=== PATIENT | male | born 1945 | race Caucasian/White ===

== ENCOUNTER → 2017-08-19 | Outpatient (CLI) | payer OTHER ==
[~2017-08-19] MED LIST: ASPI81CH PO; Adult Low Dose81 MG PO; CEPH500 PO; CHLO25B PO; CIPR500 PO; CLARITIN10 MG PO; Chlorthalidone25 MG PO; Diovan320 MG PO; GLIM2 PO; GLIM4 PO; LIRA0.6P SC; METF500; METF500 PO; NAPR220 PO; Omeprazole20 M1 PO; Simvastatin40 MG PO; Vibramycin100 MG PO
== END | disposition home or self-care (01) ==
LOC: PLD 07:28 → LAB SHORT 07:28
DX: C44.219 Basal cell carcinoma of skin of left ear and external auricular canal (principal)
CPT/HCPCS: 88305

== ENCOUNTER 2017-09-24 07:31 | Day surgery (SDC) | payer OTHER ==
[~2017-09-24] VITALS: Ht 175.3 cm; Wt 102.5 kg
[~2017-09-24 07:31] MED LIST changes: -CEPH500 PO; -CIPR500 PO; -GLIM2 PO; -Omeprazole20 M1 PO
== END 2017-09-24 22:55 | disposition home or self-care (01) ==
LOC: ORSCMMR 07:31
PROVIDERS: Surgery
PROC: 0WUF0JZ Supplement Abdominal Wall with Synthetic Substitute, Open Approach (ICD-10-PCS; principal; 2017-09-24 09:00)
DX: K42.9 Umbilical hernia without obstruction or gangrene (principal); I10 Essential (primary) hypertension; G47.33 Obstructive sleep apnea (adult) (pediatric); E11.9 Type 2 diabetes mellitus without complications; E66.9 Obesity, unspecified; Z68.33 Body mass index [BMI] 33.0-33.9, adult; Z79.899 Other long term (current) drug therapy; Z79.82 Long term (current) use of aspirin
CPT/HCPCS: 82947; C1781; J0690; J1100; J1885; J2250; J2370; J2405; J3010; J7120

== ENCOUNTER → 2017-10-22 | Outpatient (CLI) | payer OTHER ==
[~2017-10-22] MED LIST changes: +CEPH500 PO; +CIPR500 PO; +GLIM2 PO; +Omeprazole20 M1 PO
== END ==
LOC: LAB 12:30
DX: R10.2 Pelvic and perineal pain (principal)
CPT/HCPCS: 87077; 87086; 87186

== ENCOUNTER 2017-10-25 16:20 | Observation (INO) | payer OTHER ==
[~2017-10-25] VITALS: Ht 177.8 cm; Wt 97.7 kg
[~2017-10-25 16:20] MED LIST changes: -CEPH500 PO; -CIPR500 PO; -GLIM2 PO; -Omeprazole20 M1 PO
[2017-10-25] MEDS ORDERED: Omeprazole20 M1 PO (17:12)
[2017-10-25] MEDS ORDERED: CIPR500 PO (17:13)
[2017-10-25] MEDS ORDERED: GLIM2 PO (17:14)
[2017-10-25 17:40] LABS: BASOPHILS ABSOLUTE AUTO 0.03 K/mm3 (0.00-0.23); BASOPHILS PERCENT AUTO 1 % (0-2); EOSINOPHILS ABSOLUTE AUTO 0.05 K/mm3 (0.00-0.68); EOSINOPHILS PERCENT AUTO 1 % (0-6); Hematocrit 40.6 % (37.0-53.0); IMMATURE GRAN ABSOLUTE AUTO 0.02 K/mm3 (0.00-0.10); IMMATURE GRAN PERCENT AUTO 1 % (0-1); LYMPHOCYTES ABSOLUTE AUTO 1.06 K/mm3 (0.84-5.20); LYMPHOCYTES PERCENT AUTO 24 % (21-46); MONOCYTES ABSOLUTE AUTO 0.95 K/mm3 (0.16-1.47); MONOCYTES PERCENT AUTO 22 % (4-13); Mean Corpuscular HGB 32.3 pg (26.0-34.0); Mean Corpuscular HGB Conc 34.5 g/dL (31.5-36.5); Mean Corpuscular Volume 94 fL (80-100); Mean Platelet Volume 10.2 fL (9.1-12.4); NEUTROPHILS ABSOLUTE AUTO 2.28 K/mm3 (1.96-9.15); NEUTROPHILS PERCENT AUTO 52 % (41-73); Platelet Count 210 K/mm3 (150-400); RDW Coefficient Variation 14.6 % (11.7-14.2); RDW Standard Deviation 50.4 fL (35.1-46.3); Red Blood Cell Count 4.34 M/mm3 (4.30-5.90); White Blood Cell Count 4.39 K/mm3 (4.00-11.30)
[2017-10-25 17:53] LABS: Alanine Aminotransfer (ALT/SGP 70 U/L (12-78); Albumin, Blood 3.1 g/dL (3.4-5.0); Albumin/Globulin Ratio 0.7 (0.8-1.8); Alk Phos 97 U/L (50-136); Anion Gap 11 mmol/L (6-16); Aspartate Aminotrans (AST/SGOT 44 U/L (12-37); Bilirubin, Total 0.5 mg/dL (0.1-1.0); Blood Urea Nitrogen 57 mg/dL (8-24); Bun/Creatinine Ratio 23.7 (12.0-20.0); CO2, Blood 24 mmol/L (21-32); Calcium, Blood 8.6 mg/dL (8.5-10.1); Chloride, Blood 102 mmol/L (98-108); Creatinine, Blood 2.41 mg/dL (0.60-1.20); Globulin, Blood 4.5 g/dL (2.2-4.0); Glomerular Filtration Rate 28 (60-); Glucose, Blood 219 mg/dL (70-99); Sodium, Blood 137 mmol/L (136-145); Total Protein, Blood 7.6 g/dL (6.4-8.2); Troponin I <0.015 ng/mL (0.000-0.040)
[2017-10-25 18:42] LABS: Source, Urine Voided
[2017-10-25 18:58] LABS: Appearance, Urine Cloudy (Clear); Bilirubin, Urine 1+ (Neg); Blood, Urine 1+ (Neg); Color, Urine Yellow (P-Yellow); Glucose Qualitative, Urine Neg (Neg); Ketones, Urine Neg (Neg); Leukocyte Esterase, Urine 2+ (Neg); Nitrite, Urine Neg (Neg); Protein, Urine 2+ (Neg); Specific Gravity, Urine 1.025 (1.003-1.022); Urobilinogen, Urine NORM (Normal)
[2017-10-25 18:59] LABS: White Blood Cells, Urine 25-50 /hpf (0-5)
[2017-10-25 19:00] LABS: Amorphous Light (0-Heavy); Bacteria Many /hpf; Squamous Epithelial Cells Few /hpf (Few)
[2017-10-26 05:11] LABS: BASOPHILS ABSOLUTE AUTO 0.02 K/mm3 (0.00-0.23); BASOPHILS PERCENT AUTO 0 % (0-2); EOSINOPHILS ABSOLUTE AUTO 0.07 K/mm3 (0.00-0.68); EOSINOPHILS PERCENT AUTO 2 % (0-6); Hematocrit 36.8 % (37.0-53.0); Hemoglobin 12.7 g/dL (13.5-17.5); IMMATURE GRAN ABSOLUTE AUTO 0.02 K/mm3 (0.00-0.10); IMMATURE GRAN PERCENT AUTO 0 % (0-1); LYMPHOCYTES ABSOLUTE AUTO 2.06 K/mm3 (0.84-5.20); LYMPHOCYTES PERCENT AUTO 44 % (21-46); MONOCYTES ABSOLUTE AUTO 0.65 K/mm3 (0.16-1.47); MONOCYTES PERCENT AUTO 14 % (4-13); Mean Corpuscular HGB 31.4 pg (26.0-34.0); Mean Corpuscular HGB Conc 34.5 g/dL (31.5-36.5); Mean Platelet Volume 9.6 fL (9.1-12.4); NEUTROPHILS ABSOLUTE AUTO 1.83 K/mm3 (1.96-9.15); NEUTROPHILS PERCENT AUTO 39 % (41-73); Platelet Count 187 K/mm3 (150-400); RDW Coefficient Variation 14.6 % (11.7-14.2); RDW Standard Deviation 48.4 fL (35.1-46.3); Red Blood Cell Count 4.04 M/mm3 (4.30-5.90); White Blood Cell Count 4.65 K/mm3 (4.00-11.30)
[2017-10-26 05:15] LABS: Mean Corpuscular Volume 91 fL (80-100)
[2017-10-26 05:40] LABS: Albumin, Blood 2.6 g/dL (3.4-5.0); Albumin/Globulin Ratio 0.6 (0.8-1.8); Bilirubin, Total 0.3 mg/dL (0.1-1.0); Calcium, Blood 8.2 mg/dL (8.5-10.1); Creatinine, Blood 1.68 mg/dL (0.60-1.20); Globulin, Blood 4.1 g/dL (2.2-4.0); Potassium, Blood 4.1 mmol/L (3.5-5.5); Total Protein, Blood 6.7 g/dL (6.4-8.2)
[2017-10-26] MEDS ORDERED: CEPH500 PO (11:24)
== END 2017-10-26 14:24 | disposition home or self-care (01) ==
LOC: ER 16:20 → MEDS 16:21 → ENPENDDIS 10-26 10:59 → MEDS 10-26 14:24
PROVIDERS: Emergency Medicine; Internal Medicine
DX: N17.9 Acute kidney failure, unspecified (principal); N39.0 Urinary tract infection, site not specified; B96.20 Unspecified Escherichia coli [E. coli] as the cause of diseases classified elsewhere; E11.9 Type 2 diabetes mellitus without complications; I10 Essential (primary) hypertension; K59.00 Constipation, unspecified; K21.9 Gastro-esophageal reflux disease without esophagitis; Z79.82 Long term (current) use of aspirin; Z87.891 Personal history of nicotine dependence; Z79.899 Other long term (current) drug therapy
CPT/HCPCS: 36415; 71046; 76770; 80053; 81001; 82947; 83880; 84484; 85025; 87086; 93005; 93010; 96360; 96361; 96372; 96374; 99285; G0378; J0696; J1650; J7030

== ENCOUNTER 2019-01-27 16:10 | Emergency (ER) | payer OTHER ==
[~2019-01-27] VITALS: Ht 175.3 cm; Wt 104.3 kg
[~2019-01-27 16:10] MED LIST changes: +CEPH500 PO; +CIPR500 PO; +GLIM2 PO; +Omeprazole20 M1 PO
[2019-01-27 20:18] LABS: Alanine Aminotransfer (ALT/SGP 61 U/L (12-78); Albumin, Blood 3.7 g/dL (3.4-5.0); Albumin/Globulin Ratio 0.8 (0.8-1.8); Alk Phos 57 U/L (50-136); Anion Gap 4 mmol/L (6-16); Aspartate Aminotrans (AST/SGOT 23 U/L (12-37); Bilirubin, Total 0.6 mg/dL (0.1-1.0); Blood Urea Nitrogen 19 mg/dL (8-24); CO2, Blood 32 mmol/L (21-32); Calcium, Blood 9.1 mg/dL (8.5-10.1); Chloride, Blood 106 mmol/L (98-108); Creatinine, Blood 1.19 mg/dL (0.60-1.20); Globulin, Blood 4.5 g/dL (2.2-4.0); Glomerular Filtration Rate >60 (60-); Glucose, Blood 108 mg/dL (70-99); Potassium, Blood 3.7 mmol/L (3.5-5.5); Sodium, Blood 142 mmol/L (136-145); Total Protein, Blood 8.2 g/dL (6.4-8.2); Troponin I <0.015 ng/mL (0.000-0.040)
== END 2019-01-27 20:39 | disposition home or self-care (01) ==
LOC: ER 16:10
PROVIDERS: Physician Assistant
DX: R07.89 Other chest pain (principal); Z79.899 Other long term (current) drug therapy; Z79.82 Long term (current) use of aspirin; Z87.891 Personal history of nicotine dependence; I48.4 Atypical atrial flutter
CPT/HCPCS: 36415; 71046; 80048; 80053; 84484; 93005; 93010; 99283-25

== ENCOUNTER 2020-11-14 09:44 | Day surgery (SDC) | payer OTHER ==
[~2020-11-14] VITALS: Ht 177.8 cm; Wt 100.7 kg
[~2020-11-14 09:44] MED LIST changes: +ATEN25 PO; +ELIQUIS5 MG PO; +LOSA50 PO; +METF500C PO; +PRAV20 PO; +Percocet 5-3251 EACH; +TORS10 PO
--- NOTE | 2020-11-14 10:20 | NUR ---
11/14/20 1020 FRANCHESCA MANCIA ONE ATTEMPT IN RFA BY SONIA SECOND SUCCESSFUL BY RN IN RAC PT TOW
== END 2020-11-14 11:50 | disposition home or self-care (01) ==
LOC: ORSCSDS 09:44
PROVIDERS: Internal Medicine Gastroenterology
PROC: 0DBM8ZX Excision of Descending Colon, Via Natural or Artificial Opening Endoscopic, Diagnostic (ICD-10-PCS; principal; 2020-11-14 11:00)
PROC: 0DBK8ZX Excision of Ascending Colon, Via Natural or Artificial Opening Endoscopic, Diagnostic (ICD-10-PCS; principal; 2020-11-14 11:00)
DX: Z12.11 Encounter for screening for malignant neoplasm of colon (principal); D12.2 Benign neoplasm of ascending colon; D12.4 Benign neoplasm of descending colon; K64.8 Other hemorrhoids; K57.30 Diverticulosis of large intestine without perforation or abscess without bleeding; Z86.010 Personal history of colon polyps; E11.9 Type 2 diabetes mellitus without complications; G47.33 Obstructive sleep apnea (adult) (pediatric); I10 Essential (primary) hypertension; Z87.891 Personal history of nicotine dependence; Z79.01 Long term (current) use of anticoagulants; Z79.899 Other long term (current) drug therapy
CPT/HCPCS: 82947; 88305; J2704; J7120; J7799

== ENCOUNTER → 2021-08-29 | Outpatient (CLI) | payer OTHER ==
[2021-08-29 15:31] LABS: Source, Urine Clean Catch
[2021-08-29 15:58] LABS: Bilirubin, Urine Neg (Neg); Blood, Urine 5+ (Neg); Glucose Qualitative, Urine Neg (Neg); Ketones, Urine Neg (Neg); Leukocyte Esterase, Urine 1+ (Neg); Nitrite, Urine Neg (Neg); Protein, Urine 2+ (Neg); Urobilinogen, Urine NORM (Normal)
[2021-08-29 16:03] LABS: Appearance, Urine Hazy (Clear); Color, Urine Pale Yellow (P-Yellow)
[2021-08-29 16:05] LABS: Amorphous Light (0-Heavy); Bacteria Few /hpf; Mucus Light (0-Heavy); Red Blood Cells, Urine 50-100 /hpf (0-2); Squamous Epithelial Cells Rare /hpf (Few)
[2021-08-29 16:07] LABS: Granular Casts 0-2 /lpf (0); Hyaline Casts 0-2 /lpf (0-2)
== END ==
LOC: LAB SHORT 15:28
PROVIDERS: Registered Nurse Oncology
DX: C22.0 Liver cell carcinoma (principal); N39.0 Urinary tract infection, site not specified
CPT/HCPCS: 81001

== ENCOUNTER 2021-11-25 18:34 | Emergency (ER) | payer OTHER ==
[~2021-11-25] VITALS: Ht 175.3 cm; Wt 86.2 kg
[2021-11-25] MEDS ORDERED: AMOCLA875 PO (20:00)
[2021-11-26] MEDS ORDERED: Percocet 7.5-31 EACH PO (12:07)
== END 2021-11-25 20:16 | disposition home or self-care (01) ==
LOC: ER 18:34
DX: K08.89 Other specified disorders of teeth and supporting structures (principal); Z79.899 Other long term (current) drug therapy; Z87.891 Personal history of nicotine dependence
CPT/HCPCS: A9270

== ENCOUNTER 2021-11-26 10:30 | Emergency (ER) | payer OTHER ==
[~2021-11-26] VITALS: Ht 175.3 cm; Wt 86.2 kg
[~2021-11-26 10:30] MED LIST changes: +AMOCLA875 PO
[2021-11-26 11:05] LABS: BASOPHILS ABSOLUTE AUTO 0.02 K/mm3 (0.00-0.23); BASOPHILS PERCENT AUTO 0 % (0-2); EOSINOPHILS ABSOLUTE AUTO 0.01 K/mm3 (0.00-0.68); EOSINOPHILS PERCENT AUTO 0 % (0-6); Hematocrit 47.4 % (37.0-53.0); Hemoglobin 16.2 g/dL (13.5-17.5); IMMATURE GRAN ABSOLUTE AUTO 0.02 K/mm3 (0.00-0.10); IMMATURE GRAN PERCENT AUTO 0 % (0-1); LYMPHOCYTES ABSOLUTE AUTO 0.93 K/mm3 (0.84-5.20); LYMPHOCYTES PERCENT AUTO 17 % (21-46); MONOCYTES ABSOLUTE AUTO 0.58 K/mm3 (0.16-1.47); MONOCYTES PERCENT AUTO 11 % (4-13); Mean Corpuscular HGB 32.1 pg (26.0-34.0); Mean Corpuscular HGB Conc 34.2 g/dL (31.5-36.5); Mean Corpuscular Volume 94 fL (80-100); Mean Platelet Volume 10.2 fL (9.1-12.4); NEUTROPHILS ABSOLUTE AUTO 3.98 K/mm3 (1.96-9.15); NEUTROPHILS PERCENT AUTO 72 % (41-73); Platelet Count 207 K/mm3 (150-400); RDW Coefficient Variation 14.7 % (11.7-14.2); RDW Standard Deviation 50.4 fL (35.1-46.3); Red Blood Cell Count 5.05 M/mm3 (4.30-5.90); White Blood Cell Count 5.54 K/mm3 (4.00-11.30)
[2021-11-26 11:25] LABS: Alanine Aminotransfer (ALT/SGP 38 U/L (12-78); Albumin, Blood 3.4 g/dL (3.4-5.0); Albumin/Globulin Ratio 0.6 (0.8-1.8); Alk Phos 74 U/L (50-136); Anion Gap 6 mmol/L (6-16); Aspartate Aminotrans (AST/SGOT 20 U/L (12-37); Blood Urea Nitrogen 23 mg/dL (8-24); Bun/Creatinine Ratio 21.9 (12.0-20.0); CO2, Blood 30 mmol/L (21-32); Calcium, Blood 9.6 mg/dL (8.5-10.1); Chloride, Blood 102 mmol/L (98-108); Creatinine, Blood 1.05 mg/dL (0.60-1.20); Globulin, Blood 5.3 g/dL (2.2-4.0); Glomerular Filtration Rate >60 (60-); Glucose, Blood 137 mg/dL (70-99); Potassium, Blood 4.6 mmol/L (3.5-5.5); Sodium, Blood 138 mmol/L (136-145); Total Protein, Blood 8.7 g/dL (6.4-8.2)
[2021-11-26] MEDS ORDERED: Percocet 7.5-31 EACH PO (12:07)
== END 2021-11-26 12:28 | disposition home or self-care (01) ==
LOC: ER 10:30
PROVIDERS: Physician Assistant
DX: K02.9 Dental caries, unspecified (principal); Z87.891 Personal history of nicotine dependence; Z79.899 Other long term (current) drug therapy
CPT/HCPCS: 80053; 85025; 85651; A9270; J3010

== ENCOUNTER 2022-03-11 10:18 | Emergency (ER) | payer OTHER ==
[~2022-03-11] VITALS: Ht 175.3 cm; Wt 89.8 kg
[~2022-03-11 10:18] MED LIST changes: +Percocet 7.5-31 EACH PO
[2022-03-11] MEDS ORDERED: Colace100 MG PO (13:09)
[2022-03-11] MEDS ORDERED: OXAYDO5 M1 PO (13:09)
[2022-03-11] MEDS ORDERED: METPRE4DP PO (13:09)
[2022-03-11] MEDS ORDERED: LIDO700A20 TOP (13:09)
== END 2022-03-11 13:27 | disposition home or self-care (01) ==
LOC: ER 10:18
DX: M54.50 Low back pain, unspecified (principal); E11.9 Type 2 diabetes mellitus without complications; I10 Essential (primary) hypertension; Z79.01 Long term (current) use of anticoagulants; Z79.899 Other long term (current) drug therapy; Z87.891 Personal history of nicotine dependence
CPT/HCPCS: 72131; 81000; J1100; J2270; J2405

== ENCOUNTER → 2022-03-17 | Outpatient (CLI) | payer OTHER | END | disposition home or self-care (01) | LOC: LAB 16:50 | DX: N39.0 Urinary tract infection, site not specified (principal) ==

== ENCOUNTER → 2022-06-06 | Outpatient (CLI) | payer OTHER ==
[~2022-06-06] MED LIST changes: +Colace100 MG PO; +LIDO700A20 TOP; +METPRE4DP PO; +OXAYDO5 M1 PO
== END | disposition home or self-care (01) ==
LOC: LAB SHORT 15:30 → LAB 15:30
DX: R31.9 Hematuria, unspecified (principal)
CPT/HCPCS: 87077; 87086; 87186

== ENCOUNTER → 2022-07-17 | Outpatient (CLI) | payer OTHER | END | disposition home or self-care (01) | LOC: LAB SHORT 14:45 | DX: R31.0 Gross hematuria (principal) | CPT/HCPCS: 87077; 87086; 87186 ==

== ENCOUNTER 2022-12-27 08:58 | Emergency (ER) | payer OTHER ==
[~2022-12-27] VITALS: Ht 182.9 cm; Wt 81.7 kg
[2022-12-27] MEDS ORDERED: AFRIN15 M6 (10:56)
[2022-12-27 11:12] VITALS: BP 150/94
[2022-12-27] MEDS ORDERED: AMOCLA875 PO (15:43)
== END 2022-12-27 11:12 | disposition home or self-care (01) ==
LOC: ER 08:58
DX: R04.0 Epistaxis (principal); I48.91 Unspecified atrial fibrillation; I10 Essential (primary) hypertension; E11.9 Type 2 diabetes mellitus without complications; C22.9 Malignant neoplasm of liver, not specified as primary or secondary; Z79.01 Long term (current) use of anticoagulants; Z79.899 Other long term (current) drug therapy; Z87.891 Personal history of nicotine dependence
CPT/HCPCS: A9270

== ENCOUNTER 2022-12-27 14:12 | Emergency (ER) | payer OTHER ==
[~2022-12-27] VITALS: Ht 175.3 cm; Wt 99.8 kg
[~2022-12-27 14:12] MED LIST changes: +AFRIN15 M6
[2022-12-27] MEDS ORDERED: AMOCLA875 PO (15:43)
[2022-12-27 21:00] VITALS: BP 171/100
== END 2022-12-27 21:31 | disposition home or self-care (01) ==
LOC: ER 14:12
DX: R04.0 Epistaxis (principal); Z79.01 Long term (current) use of anticoagulants; I48.91 Unspecified atrial fibrillation; I10 Essential (primary) hypertension; E11.9 Type 2 diabetes mellitus without complications; C22.9 Malignant neoplasm of liver, not specified as primary or secondary; Z79.899 Other long term (current) drug therapy; Z87.891 Personal history of nicotine dependence
CPT/HCPCS: A9270

== ENCOUNTER → 2023-01-10 | Outpatient (CLI) | payer OTHER | END | disposition home or self-care (01) | LOC: LAB 15:24 → LAB SHORT 15:24 | DX: R35.0 Frequency of micturition (principal) | CPT/HCPCS: 87086 ==

== ENCOUNTER 2023-02-26 04:55 | Emergency (ER) | payer OTHER ==
[~2023-02-26] VITALS: Ht 175.3 cm; Wt 98.9 kg
[2023-02-26 06:34] VITALS: BP 136/99
== END 2023-02-26 06:50 | disposition home or self-care (01) ==
LOC: ER 04:55
DX: R04.0 Epistaxis (principal); Z79.899 Other long term (current) drug therapy; E11.9 Type 2 diabetes mellitus without complications; I10 Essential (primary) hypertension; I48.91 Unspecified atrial fibrillation; Z87.891 Personal history of nicotine dependence
CPT/HCPCS: 99283; A9270

== ENCOUNTER → 2023-02-27 | Outpatient (CLI) | payer OTHER ==
[2023-02-27 10:10] LABS: BASOPHILS ABSOLUTE AUTO 0.03 K/mm3 (0.00-0.23); BASOPHILS PERCENT AUTO 0 % (0-2); EOSINOPHILS ABSOLUTE AUTO 0.04 K/mm3 (0.00-0.68); EOSINOPHILS PERCENT AUTO 1 % (0-6); Hematocrit 40.7 % (37.0-53.0); Hemoglobin 13.2 g/dL (13.5-17.5); IMMATURE GRAN ABSOLUTE AUTO 0.04 K/mm3 (0.00-0.10); IMMATURE GRAN PERCENT AUTO 1 % (0-1); LYMPHOCYTES ABSOLUTE AUTO 1.92 K/mm3 (0.84-5.20); LYMPHOCYTES PERCENT AUTO 22 % (21-46); MONOCYTES ABSOLUTE AUTO 1.01 K/mm3 (0.16-1.47); MONOCYTES PERCENT AUTO 12 % (4-13); Mean Corpuscular HGB 31.7 pg (26.0-34.0); Mean Corpuscular HGB Conc 32.4 g/dL (31.5-36.5); Mean Corpuscular Volume 98 fL (80-100); Mean Platelet Volume 10.2 fL (9.1-12.4); NEUTROPHILS ABSOLUTE AUTO 5.58 K/mm3 (1.96-9.15); NEUTROPHILS PERCENT AUTO 65 % (41-73); Platelet Count 188 K/mm3 (150-400); RDW Coefficient Variation 13.8 % (11.7-14.2); RDW Standard Deviation 49.6 fL (35.1-46.3); Red Blood Cell Count 4.17 M/mm3 (4.30-5.90); White Blood Cell Count 8.62 K/mm3 (4.00-11.30)
[2023-02-27 10:31] LABS: Albumin, Blood 2.9 g/dL (3.4-5.0); Bilirubin, Total 0.7 mg/dL (0.1-1.0); Bun/Creatinine Ratio 28.4 (12.0-20.0); Calcium, Blood 8.7 mg/dL (8.5-10.1); Creatinine, Blood 0.99 mg/dL (0.60-1.20); Globulin, Blood 2.9 g/dL (2.2-4.0); Potassium, Blood 3.9 mmol/L (3.5-5.5); Total Protein, Blood 5.8 g/dL (6.4-8.2)
== END | disposition home or self-care (01) ==
LOC: LAB 09:47 → LAB SHORT 09:47
PROVIDERS: Internal Medicine Hematology & Oncology
DX: C22.0 Liver cell carcinoma (principal)
CPT/HCPCS: 80053; 82105; 85025

== ENCOUNTER 2023-03-27 09:21 | Emergency (ER) | payer OTHER ==
[~2023-03-27] VITALS: Ht 175.3 cm; Wt 98.9 kg
[~2023-03-27 09:21] MED LIST changes: -TORS10 PO; +TORSE20 PO
[2023-03-27 09:54] LABS: Base Excess Venous -2.9 mmol/L; Bicarbonate Venous 21.9 mmol/L (24.0-30.0); pH Blood Venous 7.36 (7.34-7.37)
[2023-03-27 09:57] LABS: BASOPHILS ABSOLUTE AUTO 0.04 K/mm3 (0.00-0.23); BASOPHILS PERCENT AUTO 0 % (0-2); EOSINOPHILS ABSOLUTE AUTO 0.03 K/mm3 (0.00-0.68); EOSINOPHILS PERCENT AUTO 0 % (0-6); Hematocrit 47.9 % (37.0-53.0); Hemoglobin 16.1 g/dL (13.5-17.5); IMMATURE GRAN ABSOLUTE AUTO 0.07 K/mm3 (0.00-0.10); IMMATURE GRAN PERCENT AUTO 1 % (0-1); LYMPHOCYTES ABSOLUTE AUTO 0.34 K/mm3 (0.84-5.20); LYMPHOCYTES PERCENT AUTO 4 % (21-46); MONOCYTES ABSOLUTE AUTO 0.62 K/mm3 (0.16-1.47); MONOCYTES PERCENT AUTO 7 % (4-13); Mean Corpuscular HGB 30.7 pg (26.0-34.0); Mean Corpuscular HGB Conc 33.6 g/dL (31.5-36.5); Mean Corpuscular Volume 91 fL (80-100); Mean Platelet Volume 10.7 fL (9.1-12.4); NEUTROPHILS ABSOLUTE AUTO 8.45 K/mm3 (1.96-9.15); NEUTROPHILS PERCENT AUTO 89 % (41-73); Platelet Count 226 K/mm3 (150-400); RDW Coefficient Variation 13.6 % (11.7-14.2); RDW Standard Deviation 46.2 fL (35.1-46.3); Red Blood Cell Count 5.24 M/mm3 (4.30-5.90); White Blood Cell Count 9.55 K/mm3 (4.00-11.30)
[2023-03-27 10:08] LABS: Albumin, Blood 2.6 g/dL (3.4-5.0); Albumin/Globulin Ratio 0.8 (0.8-1.8); Bilirubin, Direct 0.2 mg/dL (0.0-0.3); Bilirubin, Indirect 0.7 mg/dL (0.1-0.7); Bilirubin, Total 0.9 mg/dL (0.1-1.0); Bun/Creatinine Ratio 26.4 (12.0-20.0); Calcium, Blood 8.5 mg/dL (8.5-10.1); Creatinine, Blood 1.1 mg/dL (0.60-1.20); Globulin, Blood 3.1 g/dL (2.2-4.0); Magnesium, Blood 2.1 mg/dL (1.6-2.4); Phosphorus, Blood 1.9 mg/dL (2.5-4.9); Potassium, Blood 4.3 mmol/L (3.5-5.5); Total Protein, Blood 5.7 g/dL (6.4-8.2)
[2023-03-27 10:12] LABS: International Normalized Ratio 1.06; Prothrombin Time Results 11.1 Sec (9.7-11.5)
[2023-03-27] MEDS ORDERED: METFORMIN HCL500 M3 PO (10:15)
[2023-03-27] MEDS ORDERED: PRED20 PO (10:15)
[2023-03-27] MEDS ORDERED: TELM80 PO (10:16)
[2023-03-27] MEDS ORDERED: Amlodipine Bes2.5 MG PO (10:17)
[2023-03-27] MEDS ORDERED: FINA5 PO (10:18)
[2023-03-27] MEDS ORDERED: EZETIMIBE10 M6 PO (10:18)
[2023-03-27] MEDS ORDERED: MIRALAX17 GM PO (10:19)
[2023-03-27] MEDS ORDERED: B COMPLEX WITH1 EACH PO (10:19)
[2023-03-27] MEDS ORDERED: NEURONTIN300 MG PO (10:20)
[2023-03-27 10:35] LABS: Influenza A, PCR NEGATIVE (NEGATIVE); Influenza B, PCR NEGATIVE (NEGATIVE); Resp Syncytial Virus, PCR NEGATIVE (NEGATIVE); SARS-Cov-2 (COVID-19) PCR, MMC NEGATIVE (NEGATIVE)
[2023-03-27 11:51] LABS: Source, Urine Clean Catch
[2023-03-27 12:21] LABS: Bilirubin, Urine Neg (Neg); Blood, Urine 1+ (Neg); Glucose Qualitative, Urine Neg (Neg); Ketones, Urine Neg (Neg); Leukocyte Esterase, Urine Neg (Neg); Nitrite, Urine Neg (Neg); Protein, Urine 4+ (Neg); Urobilinogen, Urine NORM (Normal)
[2023-03-27 13:35] LABS: Appearance, Urine Hazy (Clear); Color, Urine Yellow (P-Yellow)
[2023-03-27 13:38] LABS: Bacteria Many /hpf
[2023-03-27 13:41] LABS: Mucus Light (0-Heavy); Red Blood Cells, Urine 0-2 /hpf (0-2); Squamous Epithelial Cells Rare /hpf (Few)
[2023-03-27] MEDS ORDERED: CEFP200 PO (15:38)
[2023-03-27 16:10] VITALS: BP 133/70
[2023-03-28] MEDS ORDERED: GLIP5 PO (07:07)
[2023-03-28] MEDS ORDERED: GLIP5ER PO (07:07)
[2023-03-28] MEDS ORDERED: ELIQUIS5 M2 PO (07:08)
== END 2023-03-27 16:27 | disposition home or self-care (01) ==
LOC: ER 09:21
PROVIDERS: Student in an Organized Health Care Education/Training Program
DX: N39.0 Urinary tract infection, site not specified (principal); R41.82 Altered mental status, unspecified; N28.89 Other specified disorders of kidney and ureter; R74.02 Elevation of levels of lactic acid dehydrogenase [LDH]; E83.39 Other disorders of phosphorus metabolism; C22.9 Malignant neoplasm of liver, not specified as primary or secondary; E11.9 Type 2 diabetes mellitus without complications; I48.91 Unspecified atrial fibrillation; I10 Essential (primary) hypertension; E78.5 Hyperlipidemia, unspecified; Z20.822 Contact with and (suspected) exposure to COVID-19; Z79.899 Other long term (current) drug therapy; Z79.01 Long term (current) use of anticoagulants; Z79.84 Long term (current) use of oral hypoglycemic drugs; Z87.891 Personal history of nicotine dependence
CPT/HCPCS: 0241U; 36415; 70450; 71045; 74177; 80053; 81001; 82140; 82248; 82803; 83605; 83735; 84100; 84145; 85025; 85610; 85730; 87040; 87077; 87086; 87186; 93005; 93010; 96361; 96365-59; 96375; 99285-25; A9270; J0696; J1885; J7030; Q9967

== ENCOUNTER 2023-03-28 05:38 | Emergency (ER) | payer OTHER ==
[~2023-03-28] VITALS: Ht 175.3 cm; Wt 98.9 kg
[~2023-03-28 05:38] MED LIST changes: +AMLODIPINE BES2.5 MG PO; +B COMPLEX WITH1 EACH PO; +CEFP200 PO; +EZETIMIBE10 M6 PO; +FINA5 PO; +METFORMIN HCL500 M3 PO; +MIRALAX17 GM PO; +NEURONTIN300 MG PO; +PRED20 PO; +TELM80 PO; +TORS10 PO; -TORSE20 PO
[2023-03-28 06:58] LABS: BASOPHILS ABSOLUTE AUTO 0.03 K/mm3 (0.00-0.23); BASOPHILS PERCENT AUTO 1 % (0-2); EOSINOPHILS PERCENT AUTO 0 % (0-6); Hematocrit 47.9 % (37.0-53.0); Hemoglobin 16.5 g/dL (13.5-17.5); IMMATURE GRAN ABSOLUTE AUTO 0.04 K/mm3 (0.00-0.10); IMMATURE GRAN PERCENT AUTO 1 % (0-1); LYMPHOCYTES ABSOLUTE AUTO 0.16 K/mm3 (0.84-5.20); LYMPHOCYTES PERCENT AUTO 3 % (21-46); MONOCYTES ABSOLUTE AUTO 0.52 K/mm3 (0.16-1.47); MONOCYTES PERCENT AUTO 10 % (4-13); Mean Corpuscular HGB 31.2 pg (26.0-34.0); Mean Corpuscular HGB Conc 34.4 g/dL (31.5-36.5); Mean Corpuscular Volume 91 fL (80-100); Mean Platelet Volume 10.5 fL (9.1-12.4); NEUTROPHILS ABSOLUTE AUTO 4.74 K/mm3 (1.96-9.15); NEUTROPHILS PERCENT AUTO 86 % (41-73); Platelet Count 129 K/mm3 (150-400); RDW Coefficient Variation 13.9 % (11.7-14.2); RDW Standard Deviation 46.4 fL (35.1-46.3); Red Blood Cell Count 5.29 M/mm3 (4.30-5.90); White Blood Cell Count 5.49 K/mm3 (4.00-11.30)
[2023-03-28] MEDS ORDERED: GLIP2.5ER PO (07:07)
[2023-03-28] MEDS ORDERED: GLIP5 PO (07:07)
[2023-03-28] MEDS ORDERED: ELIQUIS5 M2 PO (07:08)
[2023-03-28 07:11] LABS: Albumin, Blood 2.5 g/dL (3.4-5.0); Albumin/Globulin Ratio 0.7 (0.8-1.8); Bilirubin, Total 1.1 mg/dL (0.1-1.0); Calcium, Blood 8.1 mg/dL (8.5-10.1); Creatinine, Blood 1.04 mg/dL (0.60-1.20); Globulin, Blood 3.7 g/dL (2.2-4.0); Potassium, Blood 4.4 mmol/L (3.5-5.5); Total Protein, Blood 6.2 g/dL (6.4-8.2)
[2023-03-28 08:15] VITALS: BP 172/106
== END 2023-03-28 09:28 | disposition home or self-care (01) ==
LOC: ER 05:38
PROVIDERS: Emergency Medicine
DX: N39.0 Urinary tract infection, site not specified (principal); I10 Essential (primary) hypertension; E11.9 Type 2 diabetes mellitus without complications; C22.9 Malignant neoplasm of liver, not specified as primary or secondary; Z87.891 Personal history of nicotine dependence
CPT/HCPCS: 80053; 83605; 85025; 96365; 96366; 99283-25; A9270; J0696; J7030

== ENCOUNTER 2023-05-05 22:37 | Inpatient (IN) | payer OTHER ==
[~2023-05-05] VITALS: Ht 177.8 cm; Wt 95.5 kg
[~2023-05-05 22:37] MED LIST changes: -AMLODIPINE BES2.5 MG PO; +Amlodipine Bes2.5 MG PO; +ELIQUIS5 M2 PO; +GLIP5 PO; +GLIP5ER PO; -TORS10 PO; +TORSE20 PO
[2023-05-05 23:35] LABS: BASOPHILS ABSOLUTE AUTO 0.04 K/mm3 (0.00-0.23); BASOPHILS PERCENT AUTO 0 % (0-2); EOSINOPHILS ABSOLUTE AUTO 0.02 K/mm3 (0.00-0.68); EOSINOPHILS PERCENT AUTO 0 % (0-6); Hematocrit 47.1 % (37.0-53.0); Hemoglobin 15.6 g/dL (13.5-17.5); IMMATURE GRAN ABSOLUTE AUTO 0.12 K/mm3 (0.00-0.10); IMMATURE GRAN PERCENT AUTO 1 % (0-1); LYMPHOCYTES ABSOLUTE AUTO 0.79 K/mm3 (0.84-5.20); LYMPHOCYTES PERCENT AUTO 4 % (21-46); MONOCYTES ABSOLUTE AUTO 1.56 K/mm3 (0.16-1.47); MONOCYTES PERCENT AUTO 9 % (4-13); Mean Corpuscular HGB 30.4 pg (26.0-34.0); Mean Corpuscular HGB Conc 33.1 g/dL (31.5-36.5); Mean Corpuscular Volume 92 fL (80-100); Mean Platelet Volume 10.3 fL (9.1-12.4); NEUTROPHILS ABSOLUTE AUTO 15.73 K/mm3 (1.96-9.15); NEUTROPHILS PERCENT AUTO 86 % (41-73); Platelet Count 278 K/mm3 (150-400); RDW Coefficient Variation 14.6 % (11.7-14.2); RDW Standard Deviation 49.1 fL (35.1-46.3); Red Blood Cell Count 5.13 M/mm3 (4.30-5.90); White Blood Cell Count 18.26 K/mm3 (4.00-11.30)
[2023-05-05 23:57] LABS: Source, Urine Clean Catch
[2023-05-05 23:59] LABS: Bilirubin, Urine Neg (Neg); Blood, Urine 2+ (Neg); Glucose Qualitative, Urine Neg (Neg); Ketones, Urine Neg (Neg); Leukocyte Esterase, Urine Neg (Neg); Nitrite, Urine Neg (Neg); Protein, Urine 4+ (Neg); Specific Gravity, Urine 1.015 (1.003-1.022); Urobilinogen, Urine NORM (Normal)
[2023-05-06 00:12] LABS: Albumin, Blood 2.7 g/dL (3.4-5.0); Albumin/Globulin Ratio 0.6 (0.8-1.8); Bilirubin, Total 1.3 mg/dL (0.1-1.0); Calcium, Blood 8.6 mg/dL (8.5-10.1); Creatinine, Blood 1.12 mg/dL (0.60-1.20); Globulin, Blood 4.8 g/dL (2.2-4.0); Magnesium, Blood 2.1 mg/dL (1.6-2.4); Total Protein, Blood 7.5 g/dL (6.4-8.2)
[2023-05-06 00:25] LABS: Influenza A, PCR NEGATIVE (NEGATIVE); Influenza B, PCR NEGATIVE (NEGATIVE); Resp Syncytial Virus, PCR NEGATIVE (NEGATIVE); SARS-Cov-2 (COVID-19) PCR, MMC NEGATIVE (NEGATIVE)
[2023-05-06 00:41] LABS: Color, Urine Yellow (P-Yellow)
[2023-05-06 00:44] LABS: Appearance, Urine Clear (Clear); Bacteria Few /hpf; Hyaline Casts 0-2 /lpf (0-2); Squamous Epithelial Cells Few /hpf (Few); White Blood Cells, Urine 0-2 /hpf (0-5)
[2023-05-06 05:46] VITALS: BP 139/93
--- NOTE | 2023-05-06 06:23 | NUR ---
Admit/ End of shift note. Pt admitted from the ED into PCU11. Pt was oriented to room and call light system. Pt is A&O with intermittent forgetfullness/word finding. Med rec needs to be completed when is here during the day. Pt remains very weak. Bed alarm is active. Pt is able to make needs known, call light is within reach.
[2023-05-06 07:33] VITALS: BP 140/98
[2023-05-06 08:28] LABS: BASOPHILS ABSOLUTE AUTO 0.05 K/mm3 (0.00-0.23); BASOPHILS PERCENT AUTO 0 % (0-2); EOSINOPHILS ABSOLUTE AUTO 0.02 K/mm3 (0.00-0.68); EOSINOPHILS PERCENT AUTO 0 % (0-6); Hematocrit 44.1 % (37.0-53.0); Hemoglobin 14.7 g/dL (13.5-17.5); IMMATURE GRAN ABSOLUTE AUTO 0.06 K/mm3 (0.00-0.10); IMMATURE GRAN PERCENT AUTO 0 % (0-1); LYMPHOCYTES ABSOLUTE AUTO 1.39 K/mm3 (0.84-5.20); LYMPHOCYTES PERCENT AUTO 9 % (21-46); MONOCYTES ABSOLUTE AUTO 1.51 K/mm3 (0.16-1.47); MONOCYTES PERCENT AUTO 10 % (4-13); Mean Corpuscular HGB 30.4 pg (26.0-34.0); Mean Corpuscular HGB Conc 33.3 g/dL (31.5-36.5); Mean Corpuscular Volume 91 fL (80-100); Mean Platelet Volume 10.1 fL (9.1-12.4); NEUTROPHILS ABSOLUTE AUTO 12.51 K/mm3 (1.96-9.15); NEUTROPHILS PERCENT AUTO 81 % (41-73); Platelet Count 190 K/mm3 (150-400); RDW Coefficient Variation 14.7 % (11.7-14.2); RDW Standard Deviation 49.4 fL (35.1-46.3); Red Blood Cell Count 4.83 M/mm3 (4.30-5.90); White Blood Cell Count 15.54 K/mm3 (4.00-11.30)
[2023-05-06 08:40] LABS: Bun/Creatinine Ratio 28.8 (12.0-20.0); Calcium, Blood 8.3 mg/dL (8.5-10.1); Creatinine, Blood 1.18 mg/dL (0.60-1.20); Potassium, Blood 4.9 mmol/L (3.5-5.5)
[2023-05-06 11:20] VITALS: BP 133/68
[2023-05-06 16:14] VITALS: BP 148/85
--- NOTE | 2023-05-06 17:27 | NUR ---
SHIFT SUMMARY PT REMAINS ALERT AND ORIENTED. BP STABLE. O2 SATS REMAIN ABOVE 90% ON RA. HR CONTINUES TO BE IN AFIB 70'S. PT ABLE TO STAND AND TRANSFER TO BATHROOM WITH 1 ASSIST AND FWW. PT DENIES ANY PAIN. PT STATED THAT HE HAS BEEN TOLD BY THE DENTIST THAT HIS TOOTH IS INFECTED AND DR. MANZANARES CALLED AND NOTIFIED. RECORDS RECEIVED FROM PT'S DENTIST AND PLACED IN THE CHART. FAMILY AT BEDSIDE ALL SHIFT. WILL CONTINUE TO MONITOR AND REPORT TO ONCOMING RN
[2023-05-06 20:19] VITALS: BP 150/93
[2023-05-06] MEDS ORDERED: GLIP5 PO (21:40)
[2023-05-06] MEDS ORDERED: MONT10T PO (21:40)
[2023-05-06] MEDS ORDERED: NEURONTIN300 MG PO (21:44)
[2023-05-06] MEDS ORDERED: SORAFENIB200 MG PO (21:46)
[2023-05-06] MEDS ORDERED: Potassium Chlo20 ME1 PO (21:49)
[2023-05-07 03:12] VITALS: BP 151/97
--- NOTE | 2023-05-07 04:18 | NUR ---
SHIFT SUMMARY PATIENT IS ALERT AND ORIENTED. PATIENT HAS HAD NO ACUTE EVENTS THIS SHIFT. VITAL SIGNS REVIEWED. ABX INFUSED ORDERED. PATIENT HAS NOT COMPLAINED OF PAIN, NAUSEA, SOB OR VOMITTING THIS SHIFT. PATIENT HAS BEEN USING URINAL IND THIS SHIFT. BED IN LOCKED AND LOWEST POSITION. CALL LIGHT IN PLACE. WILL MONITOR UNTIL SHIFT CHANGE.
[2023-05-07 06:22] LABS: BASOPHILS ABSOLUTE AUTO 0.05 K/mm3 (0.00-0.23); BASOPHILS PERCENT AUTO 1 % (0-2); EOSINOPHILS ABSOLUTE AUTO 0.05 K/mm3 (0.00-0.68); EOSINOPHILS PERCENT AUTO 1 % (0-6); Hematocrit 40.5 % (37.0-53.0); Hemoglobin 13.6 g/dL (13.5-17.5); IMMATURE GRAN ABSOLUTE AUTO 0.07 K/mm3 (0.00-0.10); IMMATURE GRAN PERCENT AUTO 1 % (0-1); LYMPHOCYTES PERCENT AUTO 9 % (21-46); MONOCYTES ABSOLUTE AUTO 1.15 K/mm3 (0.16-1.47); MONOCYTES PERCENT AUTO 11 % (4-13); Mean Corpuscular HGB Conc 33.6 g/dL (31.5-36.5); Mean Corpuscular Volume 89 fL (80-100); Mean Platelet Volume 10.1 fL (9.1-12.4); NEUTROPHILS ABSOLUTE AUTO 8.14 K/mm3 (1.96-9.15); NEUTROPHILS PERCENT AUTO 79 % (41-73); Platelet Count 168 K/mm3 (150-400); RDW Coefficient Variation 14.6 % (11.7-14.2); RDW Standard Deviation 47.4 fL (35.1-46.3); Red Blood Cell Count 4.53 M/mm3 (4.30-5.90); White Blood Cell Count 10.36 K/mm3 (4.00-11.30)
[2023-05-07 06:52] LABS: Bun/Creatinine Ratio 22.9 (12.0-20.0); Calcium, Blood 8.4 mg/dL (8.5-10.1); Creatinine, Blood 1.05 mg/dL (0.60-1.20); Potassium, Blood 4.3 mmol/L (3.5-5.5)
[2023-05-07 07:43] VITALS: BP 135/88
[2023-05-07 15:17] VITALS: BP 133/72
--- NOTE | 2023-05-07 17:13 | NUR ---
SHIFT SUMMARY PATIENT WITH NO ACUTE EVENTS DURING SHIFT. HE IS STANDING UP TO BEDSIDE TO USE URINAL, CALLS APPROPRIATELY TO USE BATHROOM 1 PERSON STANDBY ASSISST. PATIENT PLEASANT AND COOPERATIVE WITH CARE, HE DENIES ANY COMPLAINTS AT THIS TIME.
[2023-05-07 19:38] VITALS: BP 126/78
[2023-05-07 22:39] LABS: Vancomycin, Trough 15.3 ug/mL (5.0-10.0)
[2023-05-08 05:04] LABS: BASOPHILS ABSOLUTE AUTO 0.05 K/mm3 (0.00-0.23); BASOPHILS PERCENT AUTO 1 % (0-2); EOSINOPHILS ABSOLUTE AUTO 0.06 K/mm3 (0.00-0.68); EOSINOPHILS PERCENT AUTO 1 % (0-6); Hematocrit 40.1 % (37.0-53.0); Hemoglobin 13.3 g/dL (13.5-17.5); IMMATURE GRAN ABSOLUTE AUTO 0.03 K/mm3 (0.00-0.10); IMMATURE GRAN PERCENT AUTO 0 % (0-1); LYMPHOCYTES ABSOLUTE AUTO 0.96 K/mm3 (0.84-5.20); LYMPHOCYTES PERCENT AUTO 12 % (21-46); MONOCYTES ABSOLUTE AUTO 0.96 K/mm3 (0.16-1.47); MONOCYTES PERCENT AUTO 12 % (4-13); Mean Corpuscular HGB 30.2 pg (26.0-34.0); Mean Corpuscular HGB Conc 33.2 g/dL (31.5-36.5); Mean Corpuscular Volume 91 fL (80-100); Mean Platelet Volume 10.7 fL (9.1-12.4); NEUTROPHILS ABSOLUTE AUTO 6.28 K/mm3 (1.96-9.15); NEUTROPHILS PERCENT AUTO 75 % (41-73); Platelet Count 178 K/mm3 (150-400); RDW Coefficient Variation 14.6 % (11.7-14.2); RDW Standard Deviation 48.8 fL (35.1-46.3); Red Blood Cell Count 4.41 M/mm3 (4.30-5.90); White Blood Cell Count 8.34 K/mm3 (4.00-11.30)
[2023-05-08 05:08] VITALS: BP 142/96
[2023-05-08 05:26] LABS: Albumin/Globulin Ratio 0.6 (0.8-1.8); Bilirubin, Total 0.7 mg/dL (0.1-1.0); Bun/Creatinine Ratio 24.8 (12.0-20.0); Calcium, Blood 8.3 mg/dL (8.5-10.1); Creatinine, Blood 1.01 mg/dL (0.60-1.20); Globulin, Blood 3.5 g/dL (2.2-4.0); Potassium, Blood 4.3 mmol/L (3.5-5.5); Total Protein, Blood 5.5 g/dL (6.4-8.2)
--- NOTE | 2023-05-08 06:24 | NUR ---
SHIFT SUMMARY PATIENT IS ALERT AND ORIENTED. PATIENT HAS HAD NO ACUTE EVENTS THIS SHIFT. VITAL SIGNS REVIEWED. BP REMAINS STABLE. PATIENT HAS BEEN RESTING MOST OF SHIFT. IV ABX INFUSED ORDERED. PATIENT HAS NOT COMPLAINED OF PAIN, NAUSEA, SOB OR VOMITTING THIS SHIFT. PATIENT HAS BEEN A ONE PERSON ASSIST TO BATHROOM AND HAS CALLED APPROPRIATELY. BED IN LOCKED AND LOWEST POSITION. CALL LIGHT IN PLACE.
[2023-05-08 07:29] VITALS: BP 136/87
[2023-05-08 15:16] VITALS: BP 134/89
--- NOTE | 2023-05-08 19:58 | NUR ---
SHIFT SUMMARY PATIENT WITH NEW ONSET OF BLOOD IN URINE TODAY AROUND 0830, CALL PLACED TO DR MANZANARES WHO ROUNDED SHORTLY AFTER. PATIENT CONTINUED TO URINATE BRIGHT RED BLOOD THROUGHOUT DAY, DR MANZANARES NOTIFIED AGAIN AROUND 1330. PER DR MANZANARES NO ELAQUIS TONMIGHT. PATIENT REPORTS NO BURNING OR PAIN IN THE AREA. BED IN LOW POSITION. CALL LIGHT IN REACH. PATIENT CALLS APPROPRIATELY.
[2023-05-08 20:36] VITALS: BP 148/90
[2023-05-09 04:05] VITALS: BP 155/82
--- NOTE | 2023-05-09 04:09 | NUR ---
SHIFT SUMMARY PATIENT IS ALERT AND ORIENTED. PATIENT HAS HAD NO ACUTE EVENTS THIS SHIFT. PER DAY SHIFT RN, PATIENT HAS HAD ONE INSTANCE OF URINATING BRIGHT RED BLOOD. DR HAS BEEN AWARE OF URINATING BLOOD. PATIENT HAS HAD NO COMPLAINTS OF PAIN, NAUSEA, SOB OR VOMITTING THIS SHIFT. ABX INFUSED ORDERED. PATIENT HAS BEEN SLEEPING MOST OF SHIFT. BED IN LOCKED AND LOWEST POSITION. CALL LIGHT IN PLACE. WILL MONITOR UNTIL SHIFT CHANGE.
[2023-05-09 07:45] VITALS: BP 139/87
[2023-05-09] MEDS ORDERED: AMOCLA500 PO (12:56)
[2023-05-09] MEDS ORDERED: Pyridium100 MG PO (13:02)
--- NOTE | 2023-05-09 13:51 | NUR ---
DISCHARGE NOTE MR NORIEGA WAS DISCHARGED HOME WITH HIS VIA W/C TO THE EXIT AT 1345HRS. HE AND HIS VERBALISED UNDERSTANDING OF DISCHARGE INSTRUCTIONS. PIV X 2 REMOVED INTACT. TELEMETRY REMOVED. PT AND DENIED ANY CONCERNS AND SAID THEIR QUESTIONS WERE ANSWERED AT TIME OF DISCHARGE. UOP LOOKED CLEAR YELLOW BEFORE DISCHARGE AFTER PREVIOUS HEMATURIA EPISODE.
== END 2023-05-09 13:46 | disposition home or self-care (01) | DRG 871 ==
LOC: ER 22:37 → PCU 05-06 03:26 → MEDS 05-06 05:00 → PCU 05-06 09:11 → MEDS 05-06 18:43 → ENPENDDIS 05-09 12:59 → MEDS 05-09 13:46
PROVIDERS: Hospitalist; Student in an Organized Health Care Education/Training Program; ADMIT Internal Medicine
DX: A41.9 Sepsis, unspecified organism (principal); R65.21 Severe sepsis with septic shock; E87.20 Acidosis, unspecified; C78.7 Secondary malignant neoplasm of liver and intrahepatic bile duct; I48.91 Unspecified atrial fibrillation; I10 Essential (primary) hypertension; E78.5 Hyperlipidemia, unspecified; R31.9 Hematuria, unspecified; E11.9 Type 2 diabetes mellitus without complications; K82.8 Other specified diseases of gallbladder; Z20.822 Contact with and (suspected) exposure to COVID-19; N28.89 Other specified disorders of kidney and ureter; Z79.84 Long term (current) use of oral hypoglycemic drugs; Z79.52 Long term (current) use of systemic steroids; Z79.899 Other long term (current) drug therapy; Z85.05 Personal history of malignant neoplasm of liver; Z92.21 Personal history of antineoplastic chemotherapy; Z90.49 Acquired absence of other specified parts of digestive tract; Z90.89 Acquired absence of other organs; Z98.52 Vasectomy status; Z98.890 Other specified postprocedural states; Z87.891 Personal history of nicotine dependence
CPT/HCPCS: 0241U; 36415; 71046; 71260; 74177; 76705; 80048; 80053; 80202; 81001; 82947; 83605; 83735; 83880; 85025; 87040; 93005; 93010; 96361; 96365-59; 96366; 96367-59; 97110; 97161; 97166; 97530; 97535; 99285-25; A9270; J0692; J1940; J3370; J7030; J7050; Q9967

== ENCOUNTER 2023-05-31 03:46 | Inpatient (IN) | payer OTHER ==
[~2023-05-31] VITALS: Ht 172.7 cm; Wt 97.1 kg
[~2023-05-31 03:46] MED LIST changes: +AMOCLA500 PO; +MONT10T PO; +Potassium Chlo20 ME1 PO; +Pyridium100 MG PO; +SORAFENIB200 MG PO
[2023-05-31 04:10] LABS: BASOPHILS ABSOLUTE AUTO 0.02 K/mm3 (0.00-0.23); BASOPHILS PERCENT AUTO 0 % (0-2); EOSINOPHILS ABSOLUTE AUTO 0.04 K/mm3 (0.00-0.68); EOSINOPHILS PERCENT AUTO 0 % (0-6); Hematocrit 34.6 % (37.0-53.0); Hemoglobin 11.1 g/dL (13.5-17.5); IMMATURE GRAN PERCENT AUTO 1 % (0-1); LYMPHOCYTES ABSOLUTE AUTO 2.03 K/mm3 (0.84-5.20); LYMPHOCYTES PERCENT AUTO 15 % (21-46); MONOCYTES ABSOLUTE AUTO 1.38 K/mm3 (0.16-1.47); MONOCYTES PERCENT AUTO 10 % (4-13); Mean Corpuscular HGB 30.3 pg (26.0-34.0); Mean Corpuscular HGB Conc 32.1 g/dL (31.5-36.5); Mean Corpuscular Volume 95 fL (80-100); Mean Platelet Volume 9.9 fL (9.1-12.4); NEUTROPHILS ABSOLUTE AUTO 9.81 K/mm3 (1.96-9.15); NEUTROPHILS PERCENT AUTO 73 % (41-73); Platelet Count 325 K/mm3 (150-400); RDW Standard Deviation 51.7 fL (35.1-46.3); Red Blood Cell Count 3.66 M/mm3 (4.30-5.90); White Blood Cell Count 13.38 K/mm3 (4.00-11.30)
[2023-05-31 04:28] LABS: Albumin, Blood 2.5 g/dL (3.4-5.0); Albumin/Globulin Ratio 0.7 (0.8-1.8); Bilirubin, Total 0.4 mg/dL (0.1-1.0); Bun/Creatinine Ratio 33.3 (12.0-20.0); Calcium, Blood 8.6 mg/dL (8.5-10.1); Creatinine, Blood 1.38 mg/dL (0.60-1.20); Globulin, Blood 3.5 g/dL (2.2-4.0); Potassium, Blood 4.7 mmol/L (3.5-5.5)
[2023-05-31] MEDS ORDERED: VITAMIN D310 MC4 PO (05:49)
--- NOTE | 2023-05-31 08:50 | NUR ---
PATIENT ARRIVED FROM ER TODAY. PATIENT IS A&OX4. PATIENT REPORTS "DISCOMFORT" PAIN BUT REFUSES PAIN MEDS AT THIS TIME. PATIENTS ABD IS TENDER MAINLY IN THE RUQ. PATIENT IS NPO AT THIS TIME. HE WAS A SBA FROM THE WHEELCHAIR TO THE BED IN THE ROOM. HE IS LAYING IN BED WITH CALL LIGHT IN REACH.
[2023-05-31 09:05] VITALS: BP 100/61
[2023-05-31] MEDS ORDERED: TORSE20 PO (10:56)
[2023-05-31] MEDS ORDERED: MIRALAX17 GM PO (11:00)
[2023-05-31 12:13] LABS: International Normalized Ratio 1.1; Prothrombin Time Results 11.5 Sec (9.7-11.5)
[2023-05-31 15:34] VITALS: BP 98/61
--- NOTE | 2023-05-31 16:08 | NUR ---
SHIFT SUMMARY: PATIENT IS A&OX4. VS ARE WNL AND IS ON RA. PATIENT REPORTS 4/10 PAIN BUT HAS BEEN MANAGED WITH PO TYLENOL AND IV FENTANYL. HE IS TOLERATING SMALL AMOUNTS OF HIS CLEAR LIQUID DIET TODAY. HIS ABD IS TENDER TO PALPATE ON THE RLQ WITH HYPOACTIVE BOWEL TONES. HE IS VOIDING AND PASSING GAS. PATIENT IS INDEP. IN THE ROOM. DENIES NAUSEA OR VOMITING. HE IS CURRENTLY LAYING IN BED WITH CALL LIGHT IN REACH. THE PLAN IS TO BE NPO AT MIDNIGHT TONIGHT WELL NO NARCOTICS STARTING AT MIDNIGHT TONIGHT FOR A HIATA SCAN IN THE MORNING.
[2023-05-31 20:20] VITALS: BP 104/62
[2023-06-01 04:41] VITALS: BP 144/80
[2023-06-01 05:58] LABS: BASOPHILS ABSOLUTE AUTO 0.07 K/mm3 (0.00-0.23); BASOPHILS PERCENT AUTO 1 % (0-2); EOSINOPHILS PERCENT AUTO 1 % (0-6); Hematocrit 27.2 % (37.0-53.0); Hemoglobin 8.5 g/dL (13.5-17.5); IMMATURE GRAN ABSOLUTE AUTO 0.08 K/mm3 (0.00-0.10); IMMATURE GRAN PERCENT AUTO 1 % (0-1); LYMPHOCYTES PERCENT AUTO 15 % (21-46); MONOCYTES ABSOLUTE AUTO 1.53 K/mm3 (0.16-1.47); MONOCYTES PERCENT AUTO 12 % (4-13); Mean Corpuscular HGB Conc 31.3 g/dL (31.5-36.5); Mean Corpuscular Volume 96 fL (80-100); Mean Platelet Volume 10.3 fL (9.1-12.4); NEUTROPHILS ABSOLUTE AUTO 9.23 K/mm3 (1.96-9.15); NEUTROPHILS PERCENT AUTO 72 % (41-73); Platelet Count 241 K/mm3 (150-400); RDW Coefficient Variation 15.6 % (11.7-14.2); RDW Standard Deviation 54.4 fL (35.1-46.3); Red Blood Cell Count 2.83 M/mm3 (4.30-5.90); White Blood Cell Count 12.91 K/mm3 (4.00-11.30)
[2023-06-01 07:01] LABS: Albumin, Blood 2.3 g/dL (3.4-5.0); Albumin/Globulin Ratio 0.8 (0.8-1.8); Bilirubin, Total 0.5 mg/dL (0.1-1.0); Calcium, Blood 8.4 mg/dL (8.5-10.1); Creatinine, Blood 1.78 mg/dL (0.60-1.20); Globulin, Blood 2.9 g/dL (2.2-4.0); Total Protein, Blood 5.2 g/dL (6.4-8.2)
[2023-06-01 07:42] VITALS: BP 135/71
--- NOTE | 2023-06-01 07:43 | NUR ---
SUMMARY PT REMAINS A&O X4, ON RA, VSS, PAIN MANAGED PER EMAR, NO NARCOTICS AFTER MIDNIGHT IN PREPERATION FOR CALEB THIS AM, PT STATES PAIN IS TOLERABLE THIS AM, DENIES NAUSEA, SBA TO BATHROOM USING FWW, VOIDING WNL, NPO SINCE MIDNIGHT, CALLS FOR ASSISTANCE PRN, RESTING QUIETLY THIS AM, CALL LIGHT IN REACH. REPORT GIVEN TO WAQAS KERR.
[2023-06-01 13:36] LABS: Hematocrit 25.6 % (37.0-53.0); Hemoglobin 8.3 g/dL (13.5-17.5)
[2023-06-01 15:14] VITALS: BP 114/66
--- NOTE | 2023-06-01 16:26 | NUR ---
SHIFT SUMMARY PT [id number], HAS HAD SOME INTERMITTENT CONFUSION DURING THE SHIFT. OFTEN AFTER WAKING UP. WEAK WITH AMBULATION AND SOME TREMORS NOTED IN HANDS. EDEMA PRESENT TO BILATERAL FEET AND HANDS. WORSENING DURING SHIFT. MD AWARE. PT REPORTS PAIN TOLERABLE DURING SHIFT AND HAS NOT REQUIRED ANY MEDICATIONS. HIDA SCAN BEING PERFORMED AT THIS TIME. WILL AWAIT RESULTS AND PLAN IS TO DECIDE ON A COURSE OF ACTION TOMORROW. PT WILL BE ON CLEAR LIQUID DIET ONCE HE RETURNS FROM PROCEDURE AND NPO AT MIDNIGHT.
[2023-06-01 19:21] VITALS: BP 140/68
[2023-06-02] VITALS (7 sets, daily range): BP systolic 104–146; BP diastolic 67–92
--- NOTE | 2023-06-02 00:47 | NUR ---
UPDATE ON PATIENT CONDITION CALL PLACED TO HOSPITALIST D/T CHANGE IN PTS SUDDEN ONSET WEAKNESS, WORSENING TREMORS, AND INABILITY TO COMPLETE SENTENCES. THE PATIENTS CONDITIOON HAS WORSENED SINCE MY ORIGIONAL ASSESSMENT. RECIEVED ORDER FOR STAT HEAD CT. AWAITING RESULTS AT THIS TIME. VITALS WNL.
[2023-06-02 01:13] LABS: BASOPHILS ABSOLUTE AUTO 0.04 K/mm3 (0.00-0.23); BASOPHILS PERCENT AUTO 0 % (0-2); EOSINOPHILS ABSOLUTE AUTO 0.02 K/mm3 (0.00-0.68); EOSINOPHILS PERCENT AUTO 0 % (0-6); Hematocrit 25.7 % (37.0-53.0); Hemoglobin 8.1 g/dL (13.5-17.5); IMMATURE GRAN ABSOLUTE AUTO 0.11 K/mm3 (0.00-0.10); IMMATURE GRAN PERCENT AUTO 1 % (0-1); LYMPHOCYTES ABSOLUTE AUTO 0.75 K/mm3 (0.84-5.20); LYMPHOCYTES PERCENT AUTO 6 % (21-46); MONOCYTES ABSOLUTE AUTO 1.86 K/mm3 (0.16-1.47); MONOCYTES PERCENT AUTO 15 % (4-13); Mean Corpuscular HGB 30.1 pg (26.0-34.0); Mean Corpuscular HGB Conc 31.5 g/dL (31.5-36.5); Mean Corpuscular Volume 96 fL (80-100); Mean Platelet Volume 9.9 fL (9.1-12.4); NEUTROPHILS ABSOLUTE AUTO 10.09 K/mm3 (1.96-9.15); NEUTROPHILS PERCENT AUTO 78 % (41-73); NRBC ABSOLUTE 0.02 K/mm3 (0.00-0.02); NRBC Auto 0.2 /100 WBC (0.0-0.2); Platelet Count 229 K/mm3 (150-400); RDW Coefficient Variation 15.7 % (11.7-14.2); RDW Standard Deviation 53.8 fL (35.1-46.3); Red Blood Cell Count 2.69 M/mm3 (4.30-5.90); White Blood Cell Count 12.87 K/mm3 (4.00-11.30)
--- NOTE | 2023-06-02 01:13 | NUR ---
DOCTOR UPDATE DR. MARCANO CAME TO THE FLOOR TO VISUALIZE THE PATIENT, WE STILL ARE AWAITING HEAD CT RESULTS. AT THIS TIME I FEEL IF THE PATIENTS ABILITY TO FORM SENTENCES AND SPEACH HAS IMPROVED. PT STILL EXPERIENCING DIFFICULTY FINDING THE WORDS HE WANTS TO USE. PROFOUND WEAKNESS AND INCREASE IN BILAT ARM TREMORS STILL PRESENT. VITAL SIGNS REMAIN STABLE AND THE PATIENT IS RESTING COMFORTABLY. LABS SENT. AWAITNG RESULTS. NO NEW ORDERS AT THIS TIME
--- NOTE | 2023-06-02 01:42 | NUR ---
PATIENT UPDATE TELE IN PLACE, AFIB 103
[2023-06-02 01:43] LABS: Albumin, Blood 2.4 g/dL (3.4-5.0); Albumin/Globulin Ratio 0.8 (0.8-1.8); Bilirubin, Total 0.9 mg/dL (0.1-1.0); Bun/Creatinine Ratio 27.7 (12.0-20.0); Calcium, Blood 8.2 mg/dL (8.5-10.1); Creatinine, Blood 1.55 mg/dL (0.60-1.20); Potassium, Blood 4.9 mmol/L (3.5-5.5); Total Protein, Blood 5.4 g/dL (6.4-8.2)
--- NOTE | 2023-06-02 06:06 | NUR ---
SHIFT ASSESSMENT VSS, TELE READS AFIB @96. NO EVENTS NOTED SINCE PLACEMENT. SEE PREVIOUS NOTES FOR EVENTS T/O THE NIGHT. PATIENT IS STILL EXPERIENCING INCREASED WEAKNESS, TROUBLE FINDING WORDS, AND TREMORS. PT REPORTS PAIN T/O THE NIGHT BUT HAS REFUSED TO TAKE ANYTHING D/T FEAR OF CONSTIPATION. REPROTS PASSING NO FLATTUS. VOIDING W/O DIFFICULTY. LIANNE AREA NOTED TO BE SEVERELY RAW AND YEAST LIKE. AREA CLEANSED AND DRIED ONCE PER PATIENT. HAS BEEN NPO SINCE 0000 FOR POSSIBLE SURGERY/DRAIN PLACEMENT TODAY.
--- NOTE | 2023-06-02 16:21 | NUR ---
SHIFT SUMMARY PT REPORTS PAIN TOLERABLE DURING SHIFT, OCCASIONAL INCREASES WITH COUGHING. DECLINED NEED FOR MEDICATIONS. PT HAS BEEN CLEARER OF THOUGH PROCESS DURING SHIFT, CONFUSION NOTED UPON WAKING UP WITH PATIENT ASKING "WHERE HE IS". ABLE TO STAND AND USE BATHROOM, WEAKNESS STILL PRESENT BUT IMPROVED WHILE AWAKE. DENIES ANY SHORTNESS OF BREATH OR CHEST PAIN. REMAINS IN A FIB ON TELE. FAMILY AT BEDSIDE DURING SHIFT. PT TOLERATING REGULAR DIET WELL. DENIES NAUSEA OR INCREASE IN PAIN WHILE EATING. FAMILY MET WITH PALLIATIVE CARE TODAY. PLAN WILL BE TO MOVE IN A PALLIATIVE DIRECTION PENDING FAMILY TALKING WITH DR. ATWOOD, ONCOLOGIST, TOMORROW.
--- NOTE | 2023-06-02 17:23 | NUR ---
Met with pt's family today to discuss goals of care. , sons and daughter in law were present, and they all appear to be actively involved in pt's care. The patient has active liver cancer, and has been treated for this since 2020. Pt was brought in to the ED for increased lethargy, confusion, and increased pain. Pt's states the pt asked her yesterday if they "have a plan", and further expanded on this by asking if his paperwork was all in order, including his plan for cremation. states "He knows it's almost time, and so do I". We did discuss hospice, and they are planning to disuss with pt, but asked that I do not. They state he has been given a lot of hard news recently, and they want to let him have a break, and talk to him themselves. They did, however ask that we do set up home hospice, but only after they get to talk with Dr. Nunez. Will follow up with campground caretaker tomorrow.
[2023-06-03 02:19] LABS: Source, Urine Clean Catch
[2023-06-03 02:27] LABS: Bilirubin, Urine Neg (Neg); Blood, Urine Neg (Neg); Glucose Qualitative, Urine Neg (Neg); Ketones, Urine Neg (Neg); Leukocyte Esterase, Urine 2+ (Neg); Nitrite, Urine Neg (Neg); Protein, Urine 2+ (Neg); Urobilinogen, Urine NORM (Normal)
[2023-06-03 02:38] LABS: Appearance, Urine Hazy (Clear); Color, Urine Yellow (P-Yellow)
[2023-06-03 02:39] LABS: Amorphous Mod (0-Heavy); Bacteria Few /hpf; Mucus Light (0-Heavy); Red Blood Cells, Urine Not Seen /hpf (0-2); Squamous Epithelial Cells Few /hpf (Few)
[2023-06-03 03:26] VITALS: BP 125/59
--- NOTE | 2023-06-03 04:07 | NUR ---
SHIFT SUMMARY VSS, TELE READS AFIB @97. PT SLEPT WELL T/O THE NIGHT. MEDICATED FOR PAIN WITH PRN IV FENT, GOOD RESULTS NOTED. PT REPORTING HIS PAIN HAS INCREASED AND STARTED WRAPPING AROUND HIS RIGHT SIDE PT TOLLERATING MINIMAL PO INTAKE T/O THE NIGHT, MAINLY SIPS OF WATER. LOW URINE OUTPUT NOTED, ONE UNMEASURED AND ONE 150 ML VOID. NO BM'S NOTED BUT PT DID PASS A CLEAR, JELLY LIKE MUCUS FROM RECTUM. PT REMAINS PROFOUNDLY WEAK, 2P MAX TO STAND AT BEDSIDE TO VOID. PT NOTED TO REMAIN PEACEFUL AND THANKFUL T/O THE NIGHT. NO ACUTE EVENTS NOTED.
[2023-06-03 06:39] LABS: BASOPHILS ABSOLUTE AUTO 0.03 K/mm3 (0.00-0.23); BASOPHILS PERCENT AUTO 0 % (0-2); EOSINOPHILS ABSOLUTE AUTO 0.02 K/mm3 (0.00-0.68); EOSINOPHILS PERCENT AUTO 0 % (0-6); Hematocrit 24.2 % (37.0-53.0); Hemoglobin 7.6 g/dL (13.5-17.5); IMMATURE GRAN ABSOLUTE AUTO 0.06 K/mm3 (0.00-0.10); IMMATURE GRAN PERCENT AUTO 1 % (0-1); LYMPHOCYTES ABSOLUTE AUTO 0.84 K/mm3 (0.84-5.20); LYMPHOCYTES PERCENT AUTO 9 % (21-46); MONOCYTES ABSOLUTE AUTO 1.58 K/mm3 (0.16-1.47); MONOCYTES PERCENT AUTO 16 % (4-13); Mean Corpuscular HGB 29.9 pg (26.0-34.0); Mean Corpuscular HGB Conc 31.4 g/dL (31.5-36.5); Mean Corpuscular Volume 95 fL (80-100); Mean Platelet Volume 10.3 fL (9.1-12.4); NEUTROPHILS ABSOLUTE AUTO 7.28 K/mm3 (1.96-9.15); NEUTROPHILS PERCENT AUTO 74 % (41-73); Platelet Count 192 K/mm3 (150-400); RDW Standard Deviation 55.7 fL (35.1-46.3); Red Blood Cell Count 2.54 M/mm3 (4.30-5.90); White Blood Cell Count 9.81 K/mm3 (4.00-11.30)
[2023-06-03 07:10] LABS: Albumin/Globulin Ratio 0.6 (0.8-1.8); Bilirubin, Total 1.1 mg/dL (0.1-1.0); Calcium, Blood 8.1 mg/dL (8.5-10.1); Creatinine, Blood 1.71 mg/dL (0.60-1.20); Globulin, Blood 3.3 g/dL (2.2-4.0); Potassium, Blood 4.1 mmol/L (3.5-5.5); Total Protein, Blood 5.3 g/dL (6.4-8.2)
[2023-06-03 07:17] VITALS: BP 121/73
--- NOTE | 2023-06-03 11:14 | NUR ---
MEIR/PALLIATIVE CARE IN TO SPEAK W/PT AND FAMILY.
[2023-06-03 14:55] LABS: Hematocrit 24.7 % (37.0-53.0); Hemoglobin 7.8 g/dL (13.5-17.5)
--- NOTE | 2023-06-03 16:05 | NUR ---
DISCHARGED HOME W/HOSPICE. REVIEWED DC PAPERWORK WITH SPOUSE; VERBALIZED UNDERSTANDING. PT LEFT UNIT IN [facility] FOR AMBULANCE TRANSPORT HOME. FAMILY HAD POSSESSIONS AND DC PAPERWORK IN HAND.
== END 2023-06-03 16:05 | disposition hospice, home (50) | DRG 435 ==
LOC: ER 03:46 → SURS 07:37
PROVIDERS: Emergency Medicine; Family Medicine; Student in an Organized Health Care Education/Training Program; ADMIT Hospitalist
DX: C22.8 Malignant neoplasm of liver, primary, unspecified as to type (principal); G93.41 Metabolic encephalopathy; N17.9 Acute kidney failure, unspecified; R65.10 Systemic inflammatory response syndrome (SIRS) of non-infectious origin without acute organ dysfunction; D64.9 Anemia, unspecified; R33.9 Retention of urine, unspecified; I48.91 Unspecified atrial fibrillation; Z51.5 Encounter for palliative care; E11.22 Type 2 diabetes mellitus with diabetic chronic kidney disease; I12.9 Hypertensive chronic kidney disease with stage 1 through stage 4 chronic kidney disease, or unspecified chronic kidney disease; N18.2 Chronic kidney disease, stage 2 (mild); D63.8 Anemia in other chronic diseases classified elsewhere; E78.00 Pure hypercholesterolemia, unspecified; E11.65 Type 2 diabetes mellitus with hyperglycemia; Z90.49 Acquired absence of other specified parts of digestive tract; Z87.891 Personal history of nicotine dependence; Z86.19 Personal history of other infectious and parasitic diseases; Z79.01 Long term (current) use of anticoagulants; Z79.84 Long term (current) use of oral hypoglycemic drugs
CPT/HCPCS: 36415; 70450; 71045; 76705; 76770; 78226; 80053; 81001; 82140; 82947; 83690; 85014; 85018; 85025; 85610; 87040; 93005; 93010; 96374; 96375; 99285-25; A9270; A9537; J0295; J1885; J2270; J2405; J2543; J3010; J7030; J7120